=== PATIENT | female | born 1955 | race Two or more races ===

== ENCOUNTER 2017-09-07 15:15 | Emergency (ER) | payer MEDICARE, OTHER ==
--- NOTE | 2017-09-07 16:19 | ER Document Report ---
ED Medical Screen (RME) - General Chief Complaint: Laceration Stated Complaint: LEG LACERATION Time Seen by Provider: 09/07/17 16:18 TRAVEL OUTSIDE OF THE [place] IN LAST 30 DAYS: No - HPI Notes: 09/07/17 16:19 Patient throwing a fishing that when she lost her balance landing on her big causing multiple small lacerations one large laceration to the left knee patient is on 81 mg of aspirin - Related Data Allergies/Adverse Reactions: No Known Allergies Allergy (Verified 09/07/17 15:31) Review of Systems - Review of Systems Constitutional: Other - Laceration Physical Exam - Vital signs Vitals: Temp Pulse Resp BP Pulse Ox 97.7 F 92 18 180/84 H 97 09/07/17 15:39 09/07/17 15:39 09/07/17 15:39 09/07/17 15:39 09/07/17 15:39 - Extremities General upper extremity: Other - Multiple small lacerations 2 bilateral knees with 1 large laceration over the patella of the left leg. Course - Vital Signs Vital signs: Temp Pulse Resp BP Pulse Ox 97.7 F 92 18 180/84 H 97 09/07/17 15:39 09/07/17 15:39 09/07/17 15:39 09/07/17 15:39 09/07/17 15:39
--- NOTE | 2017-09-07 16:44 | RADIOLOGY REPORT (SQ) ---
EXAM DESCRIPTION: KNEE LEFT 2 VIEWS COMPLETED DATE/TIME: 09/07/2017 4:32 pm REASON FOR STUDY: Laceration on oyster bed COMPARISON: None. NUMBER OF VIEWS: Two views. TECHNIQUE: AP and lateral radiographic images acquired of the left knee. LIMITATIONS: None. FINDINGS: MINERALIZATION: Normal. BONES: No acute fracture or dislocation. No worrisome bone lesions. JOINT: No effusion. SOFT TISSUES: Several radiopaque objects in the soft tissues anterior to the knee, best visualized on lateral view. OTHER: No other significant finding. IMPRESSION: SEVERAL RADIOPAQUE OBJECTS IN THE SOFT TISSUES ANTERIOR TO THE KNEE. NO SIGNIFICANT BON Y FINDINGS. TECHNICAL DOCUMENTATION: JOB ID: [id number]- All Rights Reserved Reading location - IP/workstation name: [email or web address]
[2017-09-07] MEDS ORDERED: LIDOCAINE 1% INJ-PF (10 MG/ML) 30 ML SDV INJ ONE (16:58)
[2017-09-07] MEDS ORDERED: IBUPROFEN 600 MG TABLET PO ONE ×2 (18:34→19:00)
[2017-09-07] MEDS ORDERED: CIPROFLOXACIN HCL 500 MG TABLET PO ONE ×2 (18:34→19:00)
[2017-09-07] MEDS ORDERED: DIPH/PERTUSS(ACELL)/TETANUS VAC/PF 0.5 ML SYR (>=10YO) IM ONE ×2 (18:34→19:00)
[2017-09-07] MEDS ORDERED: DOXYCYCLINE HYCLATE 100 MG TABLET PO ONE (18:53)
--- NOTE | 2017-09-07 19:14 | ER Document Report ---
ED General - General Chief Complaint: Laceration Stated Complaint: LEG LACERATION Time Seen by Provider: 09/07/17 16:18 Mode of Arrival: Ambulatory Information source: Patient Notes: Patient presents with multiple lacerations [place] the [place] and that when she fell, possibly cutting herself on a oyster bed. Patient with multiple lacerations to her left knee, left toe and right heel. TRAVEL OUTSIDE OF THE [place] IN LAST 30 DAYS: No - Related Data Allergies/Adverse Reactions: No Known Allergies Allergy (Verified 09/07/17 15:31) Past Medical History - General Information source: Patient - Social History Smoking Status: Former Smoker Chew tobacco use (# tins/day): No Frequency of alcohol use: None Drug Abuse: None Family History: Reviewed & Not Pertinent Patient has suicidal ideation: No Patient has homicidal ideation: No - Past Medical History Cardiac Medical History: Reports: Hx Hypercholesterolemia, Hx Hypertension Endocrine Medical History: Reports: Hx Diabetes Mellitus Type 2 Renal/ Medical History: Denies: Hx Peritoneal Dialysis Past Surgical History: Reports: Hx Orthopedic Surgery - CARPEL TUNNEL Review of Systems - Review of Systems Constitutional: No symptoms reported EENT: No symptoms reported Cardiovascular: No symptoms reported Respiratory: No symptoms reported Gastrointestinal: No symptoms reported Genitourinary: No symptoms reported Female Genitourinary: No symptoms reported Musculoskeletal: See HPI Skin: See HPI Hematologic/Lymphatic: No symptoms reported Neurological/Psychological: No symptoms reported Physical Exam - Vital signs Vitals: Temp Resp BP 97.7 F 18 180/84 H 09/07/17 15:37 09/07/17 15:37 09/07/17 15:37 - Notes Notes: PHYSICAL EXAMINATION: GENERAL: Well-appearing, well-nourished and in no acute distress. HEAD: Atraumatic, normocephalic. EYES: Pupils equal round and reactive to light, extraocular movements intact, conjunctiva are normal. ENT: Nares patent, oropharynx clear without exudates. Moist mucous membranes. NECK: Normal range of motion, supple without lymphadenopathy LUNGS: Breath sounds clear to auscultation bilaterally and equal. No wheezes rales or rhonchi. HEART: Regular rate and rhythm without murmurs ABDOMEN: Soft, nontender, nondistended abdomen. No guarding, no rebound. No masses appreciated. Female : deferred Musculoskeletal: Normal range of motion, no pitting or edema. No cyanosis. NEUROLOGICAL: Cranial nerves grossly intact. Normal speech, normal gait. Normal sensory, motor exams PSYCH: Normal mood, normal affect. SKIN: Warm, Dry, normal turgor, no rashes or lesions noted. Multiple lacerations as follows #1 left toe 2 cm, #2 left knee 4 cm, #3 left knee 2 cm, # 4 right heel 2 cm. Course - Re-evaluation Re-evalutation: X-ray was taken of left knee which does show radiopaque objects in the soft tissues anterior to the knee we irrigated the knee with 3 L of normal saline prior to closing the wounds. Patient informed that there were some retained foreign bodies that we would attempt to flush out however we would be putting her on antibiotics and the see procedure note for site would need to be watched closely for infection and we will also be placing her on antibiotic. See procedure note for laceration repair details. - Vital Signs Vital signs: Temp Pulse Resp BP Pulse Ox 98.5 F 94 16 150/82 H 98 09/07/17 19:59 09/07/17 19:59 09/07/17 19:59 09/07/17 19:59 09/07/17 19:59 Procedures - Laceration/Wound Repair 1. Left toe Wound length (cm): 2 Wound's Depth, Shape: Superficial Laceration pre-procedure: Sterile PPE donned Anesthetic type: 1% Lidocaine Volume Anesthetic (mLs): 4 Wound explored: Clean Irrigated w/ Saline (mLs): 50 Suture Size/Type: Nylon Number of Sutures: 4 Layer Closure?: No 2. Left knee Wound length (cm): 4 Wound's Depth, Shape: Irregular Laceration pre-procedure: Sterile PPE donned Anesthetic type: 1% Lidocaine Volume Anesthetic (mLs): 10 Wound explored: Clean Irrigated w/ Saline (mLs): 3,000 - Irrigated with 3 L normal saline. Suture Size/Type: 4:0, Ethilon Number of Sutures: 9 Post-procedure NV exam normal: Yes 3. Left knee Wound length (cm): 2 Wound's Depth, Shape: Superficial Laceration pre-procedure: Sterile PPE donned Anesthetic type: 1% Lidocaine Volume Anesthetic (mLs): 3 Irrigated w/ Saline (mLs): 100 Wound Repaired With: Sutures Suture Size/Type: 4:0 Number of Sutures: 5 4. Right heel Wound length (cm): 2 Wound's Depth, Shape: Superficial Laceration pre-procedure: Sterile PPE donned Anesthetic type: 1% Lidocaine Volume Anesthetic (mLs): 2 Irrigated w/ Saline (mLs): 20 Wound Repaired With: Sutures Suture Size/Type: 4:0 Number of Sutures: 5 Discharge - Discharge Clinical Impression: Laceration Fall Qualifiers: Encounter type: initial encounter Qualified Code(s): W19.XXXA - Unspecified fall, initial encounter Condition: Stable Disposition: HOME, SELF-CARE Additional Instructions: Laceration Care Your laceration has been sutured to keep the skin edges aligned during healing. The time of suture removal depends on the nature and location of your cut. Please follow the care instructions the doctor has outlined for you and return for further care, according to the schedule you've been given. Keep the wound and dressing clean. Unless you were told otherwise, you may shower daily, blotting the wound dry with a clean, unused towel. At other times, If the dressing gets wet or blood soaked, remove it and blot the wound dry, then reapply a new dressing. Unless you were instructed otherwise, dressings should be changed at least daily. If any signs of infection occur (swelling, redness, increasing tenderness, red streaks, tender lumps in the armpit or groin above the laceration, or fever) , see the doctor immediately. Please return to the emergency department or your primary care provider in 8-10 days for suture removal. Please return earlier if you develop any signs of infection such as increased redness, swelling, foul-smelling drainage or fever. These take antibiotics as prescribed. Prescriptions: Doxycycline Hyclate 100 mg PO BID #20 capsule Ibuprofen 600 mg PO Q6 #30 tablet
[2017-09-07] MEDS ORDERED: IBUPROFEN 800 MG TABLET ONE (19:39)
[2017-09-07] MEDS ORDERED: IBUPROFEN 800 MG TABLET PO ONE (19:45)
[2017-09-07 20:02] VITALS: BP 150/82
== END 2017-09-07 20:00 | disposition home or self-care (01) ==
LOC: ER 15:15
PROC: 0HQNXZZ Repair Left Foot Skin, External Approach (ICD-10-PCS; principal; 2017-09-07)
PROC: 0HQLXZZ Repair Left Lower Leg Skin, External Approach (ICD-10-PCS; 2017-09-07)
DX: S91.119A Laceration without foreign body of unspecified toe without damage to nail, initial encounter (principal); S81.012A Laceration without foreign body, left knee, initial encounter; S91.312A Laceration without foreign body, left foot, initial encounter; W18.30XA Fall on same level, unspecified, initial encounter; E11.9 Type 2 diabetes mellitus without complications; E78.00 Pure hypercholesterolemia, unspecified; I10 Essential (primary) hypertension; Z23 Encounter for immunization
CPT/HCPCS: 99283; 90471; 73560; 90715; 12004; A9270; J3490